=== PATIENT | male | born 1950 | race Hispanic/Latino ===

== ENCOUNTER 2018-01-01 11:03 | Observation (INO) | payer OTHER, MEDICARE ==
[2018-01-01] MEDS ORDERED: ASPIRIN 81 MG CHEWABLE TABLET ONE (11:35)
--- NOTE | 2018-01-01 11:45 | RAD REPORT ---
EXAM DESCRIPTION: RAD - Chest Single View - 01/01/2018 11:40 am CLINICAL HISTORY: Mid sternal chest pain COMPARISON: None. TECHNIQUE: AP portable chest image was obtained 1137 hours . FINDINGS: Lung volumes are low. Lung wolff are clear. No failure or volume overload. Sternotomy wir es are in place. Heart and vasculature are normal. No measurable pleural effusion and no pneumothorax . No gross bony abnormality seen. No acute aortic findings suspected. IMPRESSION: No acute cardiopulmonary process.
--- NOTE | 2018-01-01 12:09 | EKG ---
Test Date: 2018-01-01 Test Time: 11:09:18 Sawmill Supervisor: JERRELL MEASUREMENT RESULTS: Intervals: Rate: 76 SC: 160 QRSD: 90 QT: 402 QTc: 452 [place]: P: 49 SC: 160 QRS: 44 T: 51 INTERPRETIVE STATEMENTS: Normal sinus rhythm Normal ECG No previous ECG available for comparison Electronically Signed On 01-01-18 12:08:21 CDT by Ruiz Lindo
[2018-01-01 12:10] LABS: ALT/SGPT 30 U/L (12-78); AST/SGOT 18 U/L (15-37); Albumin 3.7 g/dL (3.4-5.0); Alkaline Phosphatase 83 U/L (45-117); BUN Blood Urea Nitrogen 19 mg/dL (7-18); Bicarbonate 27 mmol/L (21-32); Bilirubin Direct 0.1 mg/dL (0-0.2); Bilirubin Total 0.4 mg/dL (0.2-1.0); CKMB Creatine Kinase MB < 1.0 ng/mL (0.3-3.6); Glucose Level 110 mg/dL (74-106); Magnesium 2.2 mg/dL (1.8-2.4); NT PRO-BNP 135 pg/mL (<125); Potassium 4.1 mmol/L (3.5-5.1); Protein, Total 6.7 g/dL (6.4-8.2); Sodium Level 142 mmol/L (136-145); Troponin (Emerg Dept Use Only) < 0.02 ng/mL (0.0-0.045)
[2018-01-01 12:16] LABS: Absolute Lymphocytes (CBC) 1.6 K/uL (0.7-4.9); Absolute Monocytes 0.4 K/uL (0.1-1.3); Basophils % 0.7 % (0-1.3); Eosinophils % 2.9 % (0-4.4); Hematocrit 42.1 % (39.6-49.0); Lymphocytes % 31.3 % (15.3-44.8); MCH 30.6 pg (27.0-35.0); MCV 87.6 fL (80-100); MPV 8.5 fL (7.6-11.3); RBC Red Blood Cell Count 4.81 M/uL (4.33-5.43)
[2018-01-01 12:20] LABS: Protime INR 1.2
--- NOTE | 2018-01-01 12:53 | ER ---
Nurse's Notes [facility] Name: Annie Meredith Age: 67 yrs Sex: Male : 1950 Arrival Date: 01/01/2018 Time: 11:06 Bed 5 Private MD: Out, [facility] Diagnosis: Chest pain, unspecified Presentation: 01/01 11:08 Presenting complaint: Patient states: midsternal chest pressure, bilateral facial sv numbness, dizziness, bilateral shoulder pain, nausea that started this morning when he woke up. Transition of care: patient was not received from another setting of care. Onset of symptoms was January 01, 2018. Care prior to arrival: None. 11:08 Method Of Arrival: Wheelchair sv 11:08 Acuity: VANNESSA 3 sv 11:37 Risk Assessment: Do you want to hurt yourself or someone else? Patient reports no hb desire to harm self or others. Initial Sepsis Screen: Does the patient meet any 2 criteria? No. Patient's initial sepsis screen is negative. Does the patient have a suspected source of infection? No. Patient's initial sepsis screen is negative. Historical: - Allergies: 11:10 Gcofypz-Zir-Qob Reductase Inhibitors; sv - PMHx: 11:10 double bypass; Atrial Fib; sv - PSHx: 11:10 heart ablation; sv - Immunization history:: Adult Immunizations not up to date. - Social history:: Smoking status: Patient/guardian denies using tobacco, Patient/guardian denies using alcohol, street drugs, The patient lives with family. - Ebola Screening: : No symptoms or risks identified at this time. - Family history:: not pertinent. Screenin:34 Abuse screen: Denies threats or abuse. Denies injuries from another. Nutritional hb screening: No deficits noted. Tuberculosis screening: No symptoms or risk factors identified. Fall Risk None identified. Assessment: 11:35 General: Appears in no apparent distress. Behavior is calm, cooperative. Pain: hb Complains of pain in chest Pain radiates to left arm Pain currently is 4 out of 10 on a pain scale. at worst was 8 out of 10 on a pain scale. Quality of pain is described as pressure, Pain began suddenly, 2 hours ago. Neuro: Level of Consciousness is awake, alert, obeys commands, Oriented to person, place, time, situation. Cardiovascular: Heart tones S1 S2 present Capillary refill < 3 seconds Patient's skin is warm and dry. Respiratory: Airway is patent Trachea midline Respiratory effort is even, unlabored, Respiratory pattern is regular, symmetrical, Breath sounds are clear bilaterally. GI: No signs and/or symptoms were reported involving the gastrointestinal system. : No signs and/or symptoms were reported regarding the genitourinary system. EENT: No signs and/or symptoms were reported regarding the EENT system. Derm: No signs and/or symptoms reported regarding the dermatologic system. Skin is intact, is healthy with good turgor. Musculoskeletal: No signs and/or symptoms reported regarding the musculoskeletal system. 13:35 Reassessment: Patient appears in no apparent distress at this time. Patient and/or hb family updated on plan of care and expected duration. Pain level reassessed. Patient is alert, oriented x 3, equal unlabored respirations, skin warm/dry/pink. 13:38 Reassessment: Dr. Joseph at bedside. hb 13:45 Reassessment: BP158/108, HR 106. Dr. Coleman notified, no new orders at this time. hb 13:51 Reassessment: Attempted to call report to floor, receiving nurse Dot RN is off unit at this time. Vital Signs: 11:10 BP 154 / 107; Pulse 79; Resp 19; Pulse Ox 99% ; Weight 67.59 kg; Height 5 ft. 5 in. hb (165.10 cm); Pain 5/10; 12:30 BP 150 / 105; Pulse 74; Resp 16; Pulse Ox 100% on R/A; hb 13:50 BP 158 / 108; Pulse 61; Resp 15; Pulse Ox 100% on R/A; Pain 2/10; hb 11:10 Body Mass Index 24.80 (67.59 kg, 165.10 cm) hb ED Course: 11:06 Patient arrived in ED. sb2 11:06 Out, of Town is Private Physician. sb2 11:09 Sara Coleman MD is Attending Physician. ma2 11:09 Triage completed. sv 11:14 Arm band placed on. hb 11:20 Patient has correct armband on for positive identification. Placed in gown. Bed in low hb position. Call light in reach. Side rails up X 1. court monitor on. Pulse ox on. NIBP on. 11:28 EKG done, by neurophysiology tech. reviewed by Sara Coleman MD. sm3 11:30 Patient maintains SpO2 saturation greater than 95% on room air. 11:34 Debra Schmidt, RN is Primary Nurse. 11:35 Inserted saline lock: 20 gauge in right antecubital area, using aseptic technique. hb Blood collected. 11:39 X-ray completed. Portable x-ray completed in exam room. Patient tolerated procedure sw well. 11:39 XRAY Chest (1 view) In Process Unspecified. EDMS 12:52 Yung Joseph MD is Hospitalizing Provider. [facility] 14:11 CT completed. Patient tolerated procedure well. Patient moved to CT via wheelchair. Patient moved back from CT. 14:30 No provider procedures requiring assistance completed. Patient admitted, IV remains in hb place. Administered Medications: 11:38 Drug: Aspirin Chewable Tablet 243 mg Route: PO; 12:22 Follow up: Response: No adverse reaction hb Outcome: 12:53 Decision to Hospitalize by Provider. [facility] 14:30 Admitted to Tele accompanied by nurse, via wheelchair, with chart, Report called to lou Chris RN 14:30 Condition: stable 14:30 Instructed on the need for admit, Demonstrated understanding of instructions. 14:33 Patient left the ED. eb Signatures: Dispatcher [employer] EDRere Ruelas, RN Tahmina Ardon Shannon sw Baxter, Heather, JONELLE SAL Sara Coleman MD MD ma2 Celia Low Fannie Whalen Shakira 3 Corrections: (The following items were deleted from the chart) 11:14 11:10 Pulse 79bpm; Resp 19bpm; Pulse Ox 99%; 67.59 kg; Height 5 ft. 5 in.; BMI: 24.7; hb Pain 5/10; sv
--- NOTE | 2018-01-01 12:53 | EDPHYS ---
Physician Documentation [facility] Name: Annie Meredith Age: 67 yrs Sex: Male : 1950 Arrival Date: 01/01/2018 Time: 11:06 Bed 5 Private MD: Out, [facility] ED Physician Sara Coleman HPI: 01/01 11:26 This 67 yrs old Male presents to ER via Wheelchair with complaints of Chest ma2 Pain > 30 y/o. 11:26 The patient or guardian reports chest pain that is located primarily in the substernal ma2 area. Onset: gradually, 12 hour(s) ago. The pain does not radiate. Associated signs and symptoms: Pertinent positives: None. Pertinent negatives: None. cough, dizziness, lower extremity pain, lightheadedness, syncope. The chest pain is described as a heaviness. Duration: The patient or guardian reports multiple episodes, approximately 3 episodes since symptom onset, that wax and wane. Modifying factors: The symptoms are alleviated by narcotic pain medication, NSAIDS, NTG, rest, the symptoms are aggravated by. Severity of pain: At its worst the pain was moderate in the emergency department the pain is unchanged. 11:26 hx of CABG, 4 months ago, Afib . ma2 Historical: - Allergies: 11:10 Vdxqojn-Dzg-Yco Reductase Inhibitors; sv - PMHx: 11:10 double bypass; Atrial Fib; sv - PSHx: 11:10 heart ablation; sv - Immunization history:: Adult Immunizations not up to date. - Social history:: Smoking status: Patient/guardian denies using tobacco, Patient/guardian denies using alcohol, street drugs, The patient lives with family. - Ebola Screening: : No symptoms or risks identified at this time. - Family history:: not pertinent. ROS: 11:26 Cardiovascular: Positive for chest pain, Negative for edema, orthopnea, paroxysmal ma2 nocturnal dyspnea, acute changes. 11:26 All other systems are negative. 12:53 Constitutional: Negative for fever, chills, and weight loss. ma2 Exam: 11:26 Constitutional: This is a well developed, well nourished patient who is awake, alert, ma2 and in no acute distress. Head/Face: Normocephalic, atraumatic. Neck: Trachea midline, no thyromegaly or masses palpated, and no cervical lymphadenopathy. Supple, full range of motion without nuchal rigidity, or vertebral point tenderness. No Meningismus. Chest/axilla: Normal chest wall appearance and motion. Nontender with no deformity. No lesions are appreciated. Cardiovascular: Regular rate and rhythm with a normal S1 and S2. No gallops, murmurs, or rubs. Normal PMI, no JVD. No pulse deficits. Respiratory: Lungs have equal breath sounds bilaterally, clear to auscultation and percussion. No rales, rhonchi or wheezes noted. No increased work of breathing, no retractions or nasal flaring. Vital Signs: 11:10 BP 154 / 107; Pulse 79; Resp 19; Pulse Ox 99% ; Weight 67.59 kg; Height 5 ft. 5 in. hb (165.10 cm); Pain 5/10; 12:30 BP 150 / 105; Pulse 74; Resp 16; Pulse Ox 100% on R/A; hb 13:50 BP 158 / 108; Pulse 61; Resp 15; Pulse Ox 100% on R/A; Pain 2/10; hb 11:10 Body Mass Index 24.80 (67.59 kg, 165.10 cm) hb MDM: 11:09 Patient medically screened. ma2 11:26 Differential diagnosis: acute pericarditis, anxiety, coronary artery disease ma2 gastroesophageal reflux disease (GERD), stable angina, thoracic aortic disection. HEART Score: History: Highly Suspicious (2), ECG: Non specific repolarization disturbance / LBTB / PM (1), Age: > or = 65 years (2), Risk Factors: > or = 3 Risk factors for atherosclerotic disease (2). BLAISE Risk Score: 1 - patient's age is greater or equal to 65 years, 1 - Three or more CAD risk factors, 1- Known CAD, 1 - ASA use in past 7 days, 1 - Recent [<24hrs] Severe Angina, TOTAL SCORE = 5. 12:50 Data reviewed: vital signs, nurses notes, EMS record, lab test result(s), EKG, ma2 radiologic studies, plain films. Counseling: I had a detailed discussion with the patient and/or guardian regarding: the historical points, exam findings, and any diagnostic results supporting the discharge/admit diagnosis, the presence of at least one elevated blood pressure reading (>120/80) during this emergency department visit, the need for further work-up and treatment in the hospital. 13:07 Response to treatment: the patient's symptoms have mildly improved after treatment. ma2 Physician consultation: accepted by Dr. Joseph. 01/01 11:26 Order name: Basic Metabolic Panel; Complete Time: 12:34 ma2 01/01 11:26 Order name: CBC with Diff; Complete Time: 12:34 ma2 01/01 11:26 Order name: Ckmb; Complete Time: 12:34 ma2 01/01 11:26 Order name: LFT's; Complete Time: 12:34 ma2 01/01 11:26 Order name: Magnesium; Complete Time: 12:34 ma2 01/01 11:26 Order name: NT PRO-BNP; Complete Time: 12:34 ma2 01/01 11:26 Order name: PT-INR; Complete Time: 12:34 ma2 01/01 11:26 Order name: Ptt, Activated; Complete Time: 12:34 ma2 01/01 11:26 Order name: Troponin (emerg Dept Use Only); Complete Time: 12:34 ma2 01/01 13:17 Order name: Basic Metabolic Panel EDMS 01/01 13:17 Order name: Basic Metabolic Panel EDMS 01/01 13:17 Order name: CBC with Automated Diff EDMS 01/01 13:17 Order name: CBC with Automated Diff EDMS 01/01 13:17 Order name: Troponin I EDTN 01/01 11:11 Order name: EKG; Complete Time: 11:11 sv 01/01 11:11 Order name: EKG - Nurse/Tech; Complete Time: 11:11 sv 01/01 11:26 Order name: XRAY Chest (1 view); Complete Time: 11:54 ma2 01/01 12:08 Interpretation: No acute disease. wi2 01/01 11:26 Order name: Cardiac monitoring; Complete Time: 11:37 ma2 01/01 11:26 Order name: IV Saline Lock; Complete Time: 11:38 ma2 01/01 11:26 Order name: Labs collected and sent; Complete Time: 11:38 ma2 01/01 11:26 Order name: O2 Per Protocol; Complete Time: 11:38 wi2 01/01 11:26 Order name: O2 Sat Monitoring; Complete Time: 11:38 ma2 01/01 13:17 Order name: Consistent Carb (ADA) 1800 Marcelino EDTN 01/01 13:17 Order name: EKG Electrocardiogram EDTN 01/01 13:17 Order name: EKG Electrocardiogram EDMS 01/01 13:17 Order name: EKG Electrocardiogram EDMS 01/01 13:17 Order name: EKG Electrocardiogram EDMS 01/01 13:17 Order name: Troponin I EDTN 01/01 13:17 Order name: Troponin I EDTN Administered Medications: 11:38 Drug: Aspirin Chewable Tablet 243 mg Route: PO; hb 12:22 Follow up: Response: No adverse reaction hb Disposition: 01/01/18 12:53 Hospitalization ordered by Yung Joseph for Observation. Preliminary diagnosis is Chest pain, unspecified. - Bed requested for Telemetry/MedSurg (observation). - Status is Observation. eb - Condition is Stable. - Problem is new. - Symptoms are unchanged. UTI on Admission? No Signatures: Dispatcher [employer] [facility] Rere Renteria RN RN Sabina Olvera RN RN dw Baxter, Heather, RN RN Sara Coleman MD MD [facility] Fannie Whalen Corrections: (The following items were deleted from the chart) 13:36 12:53 Hospitalization Ordered by Yung Joseph MD for Observation. Preliminary diagnosis dw is Chest pain, unspecified. Bed requested for Telemetry/MedSurg (observation). Status is Observation. Condition is Stable. Problem is new. Symptoms are unchanged. UTI on Admission? No. ma2 14:33 13:36 01/01/2018 12:53 Hospitalization Ordered by Yung Joseph MD for Observation. eb Preliminary diagnosis is Chest pain, unspecified. Bed requested for Telemetry/MedSurg (observation). Status is Observation. Condition is Stable. Problem is new. Symptoms are unchanged. UTI on Admission? No. dw
[2018-01-01] MEDS ORDERED: ACETAMINOPHEN 500 MG TAB PO PRN (13:14)
[2018-01-01] MEDS ORDERED: ONDANSETRON 4 MG/2 ML VIAL IV PRN (13:14)
[2018-01-01] MEDS ORDERED: NITROGLYCERIN 0.4 MG/TAB SL PRN (13:54)
[2018-01-01] MEDS ORDERED: MORPHINE 2 MG/ML SYR IV PRN (13:54)
--- NOTE | 2018-01-01 15:05 | RAD REPORT ---
EXAM DESCRIPTION: CT - Abdomen Pelvis Wo Contrast - 01/01/2018 2:16 pm CLINICAL HISTORY: Abdominal pain COMPARISON: None. TECHNIQUE: Axial [address] imaging of the abdomen and pelvis was performed without IV contrast. No IV contrast was given because of allergy, abnormal renal function, patient refusal or physician re quest. No oral contrast given. All CT scans are performed using dose optimization technique as appropriate and may include automated exposure control or mA/KV adjustment according to patient size. FINDINGS: No suspicious findings in the lung bases. Liver size is normal. In the anterior superior right lobe a 2.5 centimeter round to oval fluid attenu ation mass is present. This is believed to be an incidental cyst. The patient has several other small er low-density areas that are not fully characterized but are probably cysts as well. Spleen and panc reas show no suspicious findings. Cholecystectomy clips are present with no biliary tree dilatation. No hydronephrosis or suspicious renal mass. No significant adrenal finding. Isodense renal masses an d pyelonephritis cannot be excluded in the absence of IV contrast. The urinary bladder is without sig nificant finding. Large amount of fluid is present filling the stomach. No gastric wall thickening or mass. No large or small bowel dilatation. Appendix is normal. There is prominent sigmoid diverticulosis without divert iculitis. No free air, free fluid or inflammatory stranding. No mass or bulky lymphadenopathy. Small bilateral fat filled inguinal hernias are present. No abdominal wall mass or hematoma. Prominent disc and bony degenerative changes are present. No acute bone process. IMPRESSION: Non-contrast enhanced CT abdomen and pelvis imaging show no acute finding. Nonacute findings detailed in the body of the report. Full assessment is limited is the absence of IV contrast.
[2018-01-01] MEDS: INSULIN -REGULAR HUMAN 50 UNIT/0.5 ML ML SQ SCH ×2 (16:30→21:00)
[2018-01-01] MEDS ORDERED: MAGNES/ALUMIN/SIMET 30ML UCUP PO PRN (20:10)
[2018-01-01] MEDS ORDERED: TRAZODONE 50 MG TABLET PO SCH (21:00)
[2018-01-01] MEDS: METOPROLOL TAR 25 MG TAB PO SCH (21:00)
[2018-01-01] MEDS: APIXABAN 5 MG TABLET PO SCH (21:21)
[2018-01-01] MEDS: LORAZEPAM 1 MG TABLET PO SCH (21:21)
--- NOTE | 2018-01-02 02:09 | HP ---
Date of Admission: 01/01/2018 Primary Care Physician: Out of town. Code Status: Full. No medical power of research attorney or living will. Chief Complaint: Chest pain and abdominal pain. History Of Present Illness: The patient is a 67-year-old male with past medical history of hypertension, coronary artery disease status post CABG, atrial fibrillation on Eliquis, and recent tinnitus, and who was on steroids which were completed and then started taking flavonoids due to recent hearing loss. The patient does state some chest tightness. Granted, he does have history of hiatal hernia repair, however, reports some tightness and gastroesophageal type symptoms, reflux-type symptoms with some abdominal pain, which was epigastric, radiating towards his back. The patient denies any vomiting, however, does report some nausea. Denies any diaphoresis, palpitations. Does report some subjective fever and chills. The patient's symptoms are constant, moderate, progressively worsening. The patient came to the ER for further evaluation. Upon arrival, his workup revealed negative troponin level. EKG did not show any acute changes. Chest x-ray was unremarkable. The patient was then referred for admission to rule out ACS. When seen in the ER, the patient was awake, alert, oriented x3, in some mild distress, however, improving in his pain. Past Medical History: Hypertension, atrial fibrillation on Eliquis, coronary artery disease, status post coronary artery bypass graft. Past Surgical History: Coronary artery bypass graft, hiatal hernia repair. Allergies: TO STATIN. Medications: List reviewed. Family History: Father had heart disease and [place]. Social History: The patient denies any tobacco use. Drinks alcohol on occasion. No daily drinking. No illicit drug use. The patient is , independent in his activities of daily living. Does not use any assistive ambulatory devices. Review of Systems: An 11-point system reviewed, negative except as per HPI. Physical Examination: Vital Signs: Pulse 79, respirations 19, blood pressure 154/107, O2 99% on 2 L via nasal cannula. General: Awake, alert, oriented x3. Some mild distress. Elderly male. HEENT: Normocephalic, atraumatic. PERRLA, EOMI. Dry mucous membranes. Oropharynx is clear. Conjunctivae anicteric. Neck: Supple. No JVD. Trachea midline. CV: S1, S2. Peripheral pulses present. No murmurs. Respiratory: Moving air well bilaterally. No wheezing or stridor. No use of accessory muscles. Gastrointestinal: Abdomen is soft, mild tenderness to palpation in the epigastric region. No rebound or guarding. No rigidity. Bowel sounds are positive. Extremities: No clubbing, cyanosis, or edema. No calf tenderness. Neuro: Cranial nerves 2 through 12 intact grossly. No focal neurological deficit. Speech is normal. Strength is symmetric bilateral upper and lower extremities. SKIN: No rashes. Normal skin turgor. Laboratory Data: INR 1.2, sodium 142, potassium 4.1, chloride 107, CO2 27, BUN 19, creatinine 1, glucose 110, calcium 8.8, magnesium 2.2. Troponin less than 0.02. BNP 135. WBC 5.2, H and H 14.7/42.1, platelets 295, neutrophils 57%. Chest x-ray shows no acute cardiopulmonary process, personally reviewed. CT scan of the abdomen shows no acute findings. Liver does have a 2.5 cm round to oval fluid attenuation mass in the anterior superior lobe believed to be incidental cyst. Smaller low-density areas not fully characterized, but probably cysts as well. Large amount of fluid present filling the stomach. No gastric wall thickening or mass. No large or small bowel dilatation. Appendix normal. Prominent sigmoid diverticulosis without diverticulitis. No free air or free fluid or inflammatory stranding. No lymphadenopathy. Small bilateral fat filled inguinal hernias present. No abdominal wall mass or hematoma. EKG shows normal sinus rhythm, rate of 76, no ST or T-wave changes. Assessment: A 67-year-old male with: 1. Chest pain, rule out acute coronary syndrome, unstable angina. The patient has history of coronary artery disease status post coronary artery bypass grafting in May in [place]. We will continue on chest pain guidelines. Monitor serial troponin levels and EKG. Cardiology has been consulted. Obtain echocardiogram to evaluate left ventricular function. 2. Atrial fibrillation with controlled ventricular rate. Continue Eliquis and metoprolol. 3. Coronary artery disease, status post coronary artery bypass grafting, nikolai artery and nikolai heart with angina. 4. Epigastric abdominal pain. CT does shows large amount of fluid in the stomach. No small bowel obstruction. 5. Liver mass, likely cyst. The patient will need outpatient reimaging in 1 to 3 months or possible biopsy. 6. Essential hypertension, stable. We will resume home medications as appropriate. The patient does have elevation of diastolic blood pressure. Plan: Admit the patient to Med-Surg, place as observation. If abdominal pain does not improve, may need surgical consultation. We will resume home medications as appropriate. GEORGE Voice ID: [id number] MTDD
[2018-01-02 04:19] LABS: Absolute Lymphocytes (CBC) 1.7 K/uL (0.7-4.9); Absolute Monocytes 0.4 K/uL (0.1-1.3); Absolute Neutrophil 3.2 K/uL (1.8-8.0); Eosinophils % 3.9 % (0-4.4); Hematocrit 40.9 % (39.6-49.0); Lymphocytes % 30.8 % (15.3-44.8); MCH 30.2 pg (27.0-35.0); MCV 87.1 fL (80-100); MPV 8.4 fL (7.6-11.3); Monocytes % 7.2 % (3.3-12.3)
[2018-01-02 04:34] LABS: Potassium 4.1 mmol/L (3.5-5.1)
--- NOTE | 2018-01-02 07:27 | ECHO ---
HEIGHT: 5 ft 5 in WEIGHT: 149 lb 0 oz DATE OF STUDY: 01/01/[address]: Yung Joseph MD 2-DIMENSIONAL: YES M.MODE: YES DOPPLER: YES COLOR FLOW: YES TDS: PORTABLE: DEFINITY: BUBBLE STUDY: DIAGNOSIS: CHEST PAIN CARDIAC HISTORY: CATHERIZATION: YES SURGERY: CABG PROSTHETIC VALVE: PACEMAKER: MEASUREMENTS (cm) DIASTOLIC (NORMALS) SYSTOLIC (NORMALS) IVSd 1.0 (0.6-1.2) LA Diam 2.8 (1.9-4.0) LVEF 67% LVIDd 4.1 (3.5-5.7) LVIDs 2.6 (2.0-3.5) %FS 37% LVPWd 1.1 (0.6-1.2) Ao Diam 2.9 (2.0-3.7) 2 DIMENSIONAL ASSESSMENT: RIGHT ATRIUM: NORMAL LEFT ATRIUM: NORMAL RIGHT VENTRICLE: NORMAL LEFT VENTRICLE: NORMAL TRICUSPID VALVE: NORMAL MITRAL VALVE: NORMAL PULMONIC VALVE: NORMAL AORTIC VALVE: NORMAL PERICARDIAL EFFUSION: NONE AORTIC ROOT: NORMAL LEFT VENTRICULAR WALL MOTION: NORMAL. MILD TRICUSPID REGURGITATION. DOPPLER/COLOR FLOW: COMMENTS: MILD TRICUSPID REGURGITATION. NORMAL LEFT VENTRICULAR SIZE AND FUNCTION. NO EFFUSION. NO WALL MOTION ABNORMALITY. TECHNOLOGIST: STACIE ATKINSON
[2018-01-02] MEDS: INSULIN -REGULAR HUMAN 50 UNIT/0.5 ML ML SQ SCH ×2 (07:30→11:19)
[2018-01-02] MEDS: METOPROLOL TAR 25 MG TAB PO SCH (08:49)
[2018-01-02] MEDS: APIXABAN 5 MG TABLET PO SCH (08:50)
[2018-01-02] MEDS: LORAZEPAM 1 MG TABLET PO SCH (08:51)
[2018-01-02] MEDS ORDERED: ASPIRIN EC 81 MG TAB PO SCH (09:00)
--- NOTE | 2018-01-02 11:04 | EKG ---
Test Date: 2018-01-02 Test Time: 08:09:36 Sintering Press Operator: MEG MEASUREMENT RESULTS: Intervals: Rate: 54 MT: 162 QRSD: 86 QT: 466 QTc: 441 [place]: P: 52 MT: 162 QRS: 60 T: 55 INTERPRETIVE STATEMENTS: Sinus bradycardia Otherwise normal ECG Compared to ECG 01/01/2018 11:09:18 Sinus rhythm no longer present Electronically Signed On 01-02-18 11:03:28 CDT by Ruiz Lindo
--- NOTE | 2018-01-02 19:00 | CON ---
Date of Consultation: 01/02/[address] Joseph's service on 01/01/2018. I saw the patient on 01/02/2018. Reason For Consultation: Chest pain. History Of Present Illness: Mr. Meredith is a 67-year-old [place] male. He lives close to [facility] in [place], [place]. Recently had CABG 4 months ago. He goes to [facility]. Has a history of atrial fibrillation. Ablation 3 weeks ago for atrial fibrillation after his bypass. He was taken off the amiodarone. He was placed on prednisone because of some short hearing loss. Since then he has developed a mid-epigastric burning and was previously diagnosed with hiatal hernia and has had a hiatal hernia surgery in the past. His symptoms are more positional when lies down. No nausea, vomi ting, diaphoresis, PND, orthopnea, pedal edema, palpitations, or syncope. Very anxious. Chest x-ray is negative. EKG is negative. CT of the abdomen was negative. Troponin was negative. Allergies: TO STATIN. Review of Systems: Negative. Social History: Negative. Family History: Negative. Medications: At home include aspirin, Eliquis, Ativan, Lopressor, Zantac, and Desyrel. Physical Examination: Vital Signs: Stable. Afebrile. HEENT: Negative. Neck: Supple with no bruit, lymphadenopathy, JVD, or thyromegaly. Chest: Clear to auscultation, percussion. Cardiac: Reveal a regular rhythm and rate. No murmurs, gallops, or rubs. Abdomen: Benign. Extremities: Revealed no clubbing, cyanosis, or edema. Diagnostic Data: As stated earlier. Impression And Plan: 1.Chest pain, most likely secondary to gastroesophageal reflux disease, esophagitis. 2.Recent coronary artery bypass graft 4 months ago, stable. 3.Atrial fibrillation. Resolved after ablation from the Eliquis and beta-blockers. We will continue that. 4.Allergy to statin. 5.History of hiatal hernia repair. The patient has already had an extensive workup including chest x-ray, EKG, CT of the abdomen and an echocardiogram, all of which were negative. There is no evidenc e of pericarditis or pericardial effusion. I think the prednisone may have exacerbated his gastroint estinal symptoms. I do not recommend any further cardiac workup. He can go home whenever it is okay with Dr. Joseph. NIGEL/RAMSEY Voice ID: [id number] Report ID: [id number]
[2018-01-03] MEDS ORDERED: RANITIDINE 150 MG TABLET PO SCH (09:00)
--- NOTE | 2018-01-03 16:21 | DS ---
Date of Discharge: 01/02/2018 Consultants: Dr. Lindo with Cardiology. Discharge Diagnoses: 1. Unstable angina. Acute coronary syndrome ruled out. 2. Coronary artery disease [place] artery, [place] heart, status post coronary artery bypass graft with angina, stable. 3. Atrial fibrillation with controlled ventricular rate, chronic, on Eliquis and metoprolol. 4. Epigastric abdominal pain, resolved. 5. Liver mass, likely cyst. We will need further reimaging in 1 to 3 months and biopsy to rule out malignancy. The patient voiced understanding. 6. Essential hypertension, stable. Hospital Course: The patient is a 67-year-old male, comes in from [place] visiting his kids, with chest pain and abdominal pain. The patient was recently on high-dose steroids due to ear infection and tinnitus and seems to have irritated his stomach. The patient also has a hiatal hernia with repair. The patient was also complaining of some chest pain due to his significant history of recent bypass. The patient was admitted to the hospital for ACS workup. His cardiac enzymes were negative. Echocardiogram was done, which showed normal EF 67%. No effusion. No wall motion abnormality. He was seen by Dr. Lindo and was cleared for discharge from his standpoint. Chest x-ray and EKG were unremarkable. His CT scan of the abdomen, however, did show some lesions in the liver, which were thought to be cysts and he did have some fluid in his stomach. The patient however did not have any nausea or vomiting and was able to tolerate his diet. Workup was initiated including tumor marker. However, the patient did not wish to stay in the hospital for workup of his liver lesions and decided to follow up with his physicians in [place] including his GI doctor and family doctor. He understands that this may be malignant masses; however, do appear cyst at this time, and he will need repeat imaging in 1 to 3 months and possible biopsy for further evaluation. The patient voiced understanding. The patient was then cleared for discharge. All questions were answered. He was sent home in stable condition. Activity: As tolerated. Medications: As per medication reconciliation list. Followup: Follow up with primary care physician in [place] in 2 to 3 days. Follow up with GI doctor in 1 to 2 weeks. Follow up with entry manager in 1 to 2 weeks. Return to ER for worsening condition. Repeat CT abdomen to evaluate liver lesions in 1 to 3 months. No driving or operating heavy machinery while on benzodiazepines. Physical Examination: General: Awake, alert, oriented, no acute distress. CV: S1, S2. No murmurs. Respiratory: Moving air well bilaterally. Abdomen: Soft, nontender, nondistended. Positive bowel sounds. Extremities: No clubbing, cyanosis, edema. Neurologic: Nonfocal. SA/MODL Voice ID: [id number] Report ID: [id number] [facility]
== END 2018-01-02 12:16 | disposition home or self-care (01) ==
LOC: ER 11:03 → ERHOLD 13:15 → 4TH 14:13 → 3RD 01-02 10:33 → 4TH 01-02 10:38
PROVIDERS: ADMIT Family Medicine; ATTEND Family Medicine
DX: I25.110 Atherosclerotic heart disease of native coronary artery with unstable angina pectoris (principal); Z95.1 Presence of aortocoronary bypass graft; I10 Essential (primary) hypertension; I48.91 Unspecified atrial fibrillation; R16.0 Hepatomegaly, not elsewhere classified; Z79.01 Long term (current) use of anticoagulants
CPT/HCPCS: 36415; 71045; 74176; 80048 ×2; 80076; 82105; 82553; 82962; 83735; 83880; 84484 ×3; 85025 ×2; 85610; 85730; 93005 ×2; 93306; 94760 ×3; 99285; G0378 ×2